=== PATIENT | female | born 1970 | race Caucasian/White ===

== ENCOUNTER 2016-11-18 11:36 | Day surgery (SDC) | payer OTHER ==
[~2016-11-18] VITALS: Ht 162.6 cm; Wt 124.7 kg
[~2016-11-18 11:36] MED LIST: CALCIUM GUMMIES PO; CYMBALTA60 MG PO; DOCUSATE SODIU100 MG PO; FERROUS FUMARA324 MG PO; GABAPENTIN600 MG PO; HYDROCHLOROTHIA50 MG PO; KLOR-CON M2020 MEQ PO; MORPHINE SULFAT60 M2 PO; OXYCODONE HCL15 MG PO; SENOKOT8.6 MG PO
--- NOTE | 2016-11-18 14:45 | Provider's Discharge Care Plan ---
Problem, Goal, Plan Problem List 1. Lipoma
--- NOTE | 2016-11-18 14:45 | Provider's Discharge Care Plan ---
Problem, Goal, Plan Problem List 1. Lipoma
--- NOTE | 2016-11-18 15:21 | OPERATIVE REPORT ---
DATE OF SURGERY: 11/18/2016 SURGEON: Jayden Chavis MD PREOPERATIVE DIAGNOSIS: 1. Subcutaneous masses of right upper abdomen POSTOPERATIVE DIAGNOSES: 1. Subcutaneous lipomas of right upper abdomen (5 x 2.5 and 3 x 1.5) PROCEDURE PERFORMED: 1. Excision of subcutaneous masses of right abdomen ANESTHESIA: General. INDICATIONS: The patient is a 46-year-old woman with painful nodules under the skin in the right upper abdomen. SURGICAL TECHNIQUE: The patient was taken to the operating room where, by her request, general anesthetic was administered and the patient prepped and draped in the usual sterile fashion. A local anesthetic of 0.5% Marcaine with epinephrine was also infiltrated. Short transverse incisions were made over each of these masses and the underlying well-encapsulated fatty lobule was removed in its entirety. There was no need for additional hemostasis. The wounds were closed with interrupted subcuticular 4-0 Vicryl suture and Steri-Strips. This patient additionally has a large ventral hernia; however, she is in the process of trying to lose more weight before she attempts to get this fixed. Note also these 2 lipomas were not hernias.
[2016-11-18 15:44] VITALS: BP 113/69
== END 2016-11-18 16:00 | disposition home or self-care (01) ==
LOC: OR SRH 11:36 → SCU SRH 11:41 → OR SRH 13:00
PROVIDERS: Surgery
PROC: 0JB80ZZ Excision of Abdomen Subcutaneous Tissue and Fascia, Open Approach (ICD-10-PCS; principal; 2016-11-18 13:45)
DX: D17.1 Benign lipomatous neoplasm of skin and subcutaneous tissue of trunk (principal)
CPT/HCPCS: 29229; 29240; 50004; 60001; 70002; 80575; 83773; 84038